=== PATIENT | male | born 2000 | race Caucasian/White ===

== ENCOUNTER 2022-02-28 12:27 | Emergency (ER) | payer BC, MEDICAID ==
[~2022-02-28] VITALS: Ht 170.2 cm; Wt 108.9 kg
[2022-02-28] MEDS ORDERED: methylPREDNISolone SOD SUCC 125 MG/2 ML VL IV ONE (12:45)
[2022-02-28] MEDS ORDERED: diphenhdrAMINE HCL 50 MG/1 ML VL IV ONE (12:45)
[2022-02-28 13:20] VITALS: BP 128/64
[2022-02-28] MEDS ORDERED: DIPH25CA66 PO (13:51)
[2022-02-28] MEDS ORDERED: METH4PAK PO (13:51)
== END 2022-02-28 14:53 | disposition home or self-care (01) ==
LOC: EDBD 12:27 → ER 12:27
DX: T78.40XA Allergy, unspecified, initial encounter (principal); J45.909 Unspecified asthma, uncomplicated; X58.XXXA Exposure to other specified factors, initial encounter
CPT/HCPCS: 71045; 93005; 96374; 96375; 99284; J1200; J2930